=== PATIENT | female | born 1965 | race American Indian/Alaskan Native ===

== ENCOUNTER 2022-02-01 15:32 | Emergency (ER) | payer SELFPAY ==
[2022-02-01] MEDS ORDERED: KETOROLAC 60 MG/2 ML INJ IM ONE (16:21)
--- NOTE | 2022-02-01 16:21 | Emergency Department Report ---
ED General Adult HPI - General Chief complaint: Neuro Symptoms/Deficit Stated complaint: PAIN IN ARM UNABLE TO LEFT ARM Time Seen by Provider: 02/01/22 16:11 Source: patient Mode of arrival: Ambulatory Limitations: No Limitations - History of Present Illness Initial comments: Patient is 56 years old female with history of HIV. Patient presented to the ER complaining of right shoulder pain. Patient stated that pain started last night. 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 She denied any weakness, numbness or tingling sensation. She also denied any facial asymmetry, no speech abnormality or abnormal balance. No visual changes. Patient also denied any fever or chills. - Related Data Previous Rx's Medication Instructions Recorded Last Taken Type Naproxen [Naprosyn] 500 mg PO BID #14 tablet 02/01/22 Unknown Rx Allergies Allergy/AdvReac Type Severity Reaction Status Date / Time No Known Allergies Allergy Unverified 02/01/22 15:39 ED Review of Systems ROS: Stated complaint: PAIN IN ARM UNABLE TO LEFT ARM Other details as noted in HPI Comment: All other systems reviewed and negative Constitutional: denies: chills, fever Respiratory: denies: cough, shortness of breath, SOB with exertion Cardiovascular: denies: chest pain, palpitations, dyspnea on exertion Gastrointestinal: denies: abdominal pain, nausea, vomiting Musculoskeletal: arthralgia. denies: back pain Neurological: denies: headache, weakness, numbness, paresthesias, confusion, abnormal gait ED Past Medical Hx - Medications Home Medications: Home Medications Medication Instructions Recorded Confirmed Last Taken Type Naproxen [Naprosyn] 500 mg PO BID #14 tablet 02/01/22 Unknown Rx ED Physical Exam - General Limitations: No Limitations General appearance: alert, in no apparent distress - Head Head exam: Present: atraumatic, normocephalic, normal inspection - Eye Eye exam: Present: normal appearance, PERRL - ENT ENT exam: Present: normal exam, normal orophraynx, mucous membranes moist - Neck Neck exam: Present: normal inspection, full ROM. Absent: tenderness, meningismus - Respiratory Respiratory exam: Present: normal lung sounds bilaterally - Cardiovascular Cardiovascular Exam: Present: regular rate, normal rhythm, normal heart sounds - GI/Abdominal GI/Abdominal exam: Present: soft, normal bowel sounds. Absent: distended, tenderness, guarding, rebound, rigid, organomegaly, mass, bruit, pulsatile mass, hernia - Extremities Exam Extremities exam: Present: normal inspection, normal capillary refill. Absent: calf tenderness - Expanded Upper Extremity Exam Right Shoulder Exam: Present: normal inspection, tenderness. Absent: full ROM (Slightly limited range of motion secondary to pain.), swelling, abrasion, laceration, deformity, crepidus, dislocation, erythema Upper Arm exam: Present: normal inspection Neuro motor exam: Present: wrist extension intact, thumb opposition intact, thumb IP flexion intact, thumb adduction intact, fingers 2-5 abduction intact Neurosensory exam: Present: 2-point discrimination, radial nerve intact, ulnar nerve intact, median nerve intact Vascular: Present: normal capillary refill - Back Exam Back exam: Present: normal inspection, full ROM. Absent: CVA tenderness (R), CVA tenderness (L) - Neurological Exam Neurological exam: Present: alert, oriented X3, CN II-XII intact, normal gait, reflexes normal. Absent: motor sensory deficit - Psychiatric Psychiatric exam: Present: normal mood - Skin Skin exam: Present: warm, intact, normal color ED Course Vital Signs 02/01/22 02/01/22 02/01/22 15:42 15:44 18:14 Temperature 97.5 F L Pulse Rate 75 78 Respiratory 19 Rate Blood Pressure 137/96 Blood Pressure 140/88 [Left] O2 Sat by Pulse 99 100 Oximetry ED Medical Decision Making - Radiology Data Radiology results: report reviewed - Medical Decision Making Patient is 56 years old female with history of HIV. Patient presented to the ER complaining of right shoulder pain. Patient stated that pain started last night. 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 She denied any weakness, numbness or tingling sensation. She also denied any facial asymmetry, no speech abnormality or abnormal balance. No visual changes. Patient also denied any fever or chills. Right shoulder x-ray is unremarkable. Patient symptoms most likely related to arthritis versus impingement syndrome. Patient advised to follow-up with her primary care physician in the next 2 to 3 days and to return to the ER if she develop any new symptoms. Patient given prescription for Naprosyn. Critical care attestation.: If time is entered above; I have spent that time in minutes in the direct care of this critically ill patient, excluding procedure time. ED Disposition Clinical Impression: Right shoulder pain Disposition: HOME / SELF CARE / HOMELESS Is pt being admited?: No Condition: Stable Instructions: Shoulder Pain, Musculoskeletal Pain Prescriptions: Naproxen [Naprosyn] 500 mg PO BID #14 tablet Referrals: PORTER GAMA MD [Staff Physician] - 3-5 Days Forms: Work/School Release Form(ED)
--- NOTE | 2022-02-01 16:46 | XRay Report ---
RIGHT SHOULDER 2 VIEW(S) INDICATION / CLINICAL INFORMATION: Right shoulder pain COMPARISON: None available. FINDINGS: BONES / JOINT(S): No acute fracture or subluxation. No significant arthritis. SOFT TISSUES: No significant abnormality. ADDITIONAL FINDINGS: None. Signer Name: Per Mcgee MD Signed: 02/01/2022 4:42 PM Workstation Name: [id number]
[2022-02-01 18:14] VITALS: BP 140/88
== END 2022-02-01 18:58 | disposition home or self-care (01) ==
LOC: ED 15:32
DX: M25.511 Pain in right shoulder (principal)
CPT/HCPCS: 73030; 99283; J1885